=== PATIENT | male | born 1990 | race Caucasian/White ===

== ENCOUNTER → 2023-05-12 | Outpatient (REF) | payer BC | LOC: M LABSMT 15:03 | PROVIDERS: ATTEND Urology | DX: Z30.2 Encounter for sterilization (principal) ==

== ENCOUNTER → 2023-05-12 | Outpatient (REF) | payer BC | LOC: M SMT 13:20 → M SFHCDERM 13:20 | PROVIDERS: ATTEND Urology | DX: Z30.2 Encounter for sterilization (principal) ==

== ENCOUNTER → 2023-09-14 | Outpatient (REF) | payer BC ==
[2023-09-14 10:33] LABS: SEMEN APPEARANCE OPAQUE (OPAQUE); SEMEN VISCOSITY LIQUID (LIQUID); SEMEN VOLUME 2.1 ml (2.0-5.0); SEMEN pH 8.5 (7.0-8.0)
[2023-09-14 10:34] LABS: WBC CONCENTRATION >1 M/ml (<=1 M/ml)
== END ==
LOC: M SMT 10:12
PROVIDERS: ATTEND Urology
DX: Z30.2 Encounter for sterilization (principal)